=== PATIENT | female | born 1955 | race Caucasian/White ===

== ENCOUNTER 2018-10-05 19:10 | Outpatient (REF) | payer OTHER, SELFPAY ==
[2018-10-05 21:42] LABS: COMMENT (LAB VIEW ONLY) 31.39 mg/dL; Microalb ug/mg Crea 9.2 ug/mg Cr
== END 2018-10-05 19:30 ==
LOC: NCHCN 19:10
PROVIDERS: PCP Family Medicine; Visit Provider Family Medicine
DX: E10.65 Type 1 diabetes mellitus with hyperglycemia (principal)
CPT/HCPCS: 82043; 82570

== ENCOUNTER 2018-10-06 12:10 | Outpatient (REF) | payer OTHER, SELFPAY ==
[2018-10-06 21:32] LABS: TSH 2.54 uIU/mL (0.358-3.74)
== END 2018-10-06 12:30 ==
LOC: NCHCN 12:10
PROVIDERS: PCP Family Medicine; Visit Provider Family Medicine
DX: R53.83 Other fatigue (principal)
CPT/HCPCS: 84443

== ENCOUNTER 2019-01-23 02:45 | Outpatient (CLI) | payer OTHER, SELFPAY ==
--- NOTE | 2019-01-23 07:35 | DIABASSESS_ITS ---
DESCRIPTION/ASSESSMENT: Estelle Love presents for diabetes self management with consideration for a continuous glucose monitor Professional trial. Estelle has been struggling with frequent high and low blood sugars and doesn't feel she knows what to do now. A1c 8.9 down from 9.1. Estelle has 2 week blood sugar record of 53-245 fasting; 60-236 2 hours after breakfast; 53-317 before lunch; 49-307 before dinner; 143-297 bedtime. She is dosing 1 unit for 15 grams carbohydrate and doubled her insulin correction to 2 units for lowest correction. She takes 7-22 units mealtime insulin daily and 22u Levemir with experimenting cutting back on night levemir from 10 to 6 or 8 units. In addition, blood sugar reduction overnight can be 140mg/dl suggesting insulin at night may be too much. Estelle has attempted to wear 'some device' on her body in the past and it bothered her. She is reluctant to give this device a try. However, given her wide range in blood sugars and insulin dosing variations, after thorough description of CGM and the possibility of wearing one that she owns, she is willing to try again to wear this CGM. INTERVENTION: Reviewed procedure for insertion of CGM sensor and transmitter; set high and low alerts, reviewed entering calibration blood sugars; reviewed precautions. Discussed continued documentation of food, blood sugar and insulin dosing. The CGM is placed without difficulty and she is comfortable with the device on her body when leaving the visit. Discussed injection of insulin and she has insulin pens but is using a needle because pen needles were not given to her. Reviewed insulin pen injection and she is able to return demonstration. She is given 15 mae pen needles to get her started and she will contact her provider for a new prescription for pen needles. Further discussed options for basal insulin as she does not feel Levemir is effective for her. Reviewed new basal insulin, especially Tresiba. Discussed her current insulin management. Suggested she go back to 1 unit corrects 50mg/dl and watch pattern; Suggested decreasing basal insulin to 9 in AM and 8 in PM. PLAN She will wear the CGM and document food, blood sugar and insulin. decrease Levemir to 9 and 8 units discuss with provider Lantus or Tresiba (42 hour duration) basal insulin instead of Levemir call PCP for prescription for pen needles She will decrease insulin correction to 1 unit corrects 50mg/dl above 150mg/dl. We will get together in about 1 week to return the CGM and download her report. Glucose Monitoring 1 unit No DM group education series being offered at this time.
--- NOTE | 2019-05-02 12:47 | TELEFU_ITS ---
DESCRIPTION/ASSESSMENT: Estelle Love was offered a second try with [employer] CGM Professional because I was unable to download and print her first trial. She admits blood sugars were high this week and this is confirmed. She had only one blood sugar below 70 around noon after correction in the morning on her first day wearing it. INTERVENTION: Estelle plans to continue her application for obtaining her own CGM. Her results are sent to her provider. PLAN: She will call if she wishes for further intervention. Please do not bill for this service.
== END 2019-01-23 03:05 ==
PROVIDERS: PCP Family Medicine; Visit Provider Dietitian, Registered
DX: E66.9 Obesity, unspecified (principal); Z79.4 Long term (current) use of insulin; Z71.3 Dietary counseling and surveillance
CPT/HCPCS: 95250

== ENCOUNTER 2019-06-23 09:18 | Outpatient (CLI) | payer OTHER, SELFPAY ==
--- NOTE | 2019-06-23 09:00 | DI.US_ITS ---
EXAM: US PELVIS TRANSVAGINAL CLINICAL HISTORY: Pelvic pain R>L R10.2, Z86.018 PERSONAL HX OTHER BENIGN NEOPLASM. TECHNIQUE: Ultrasound performed using standard protocol. COMPARISON: No exams were available for comparison FINDINGS: THE UTERUS MEASURES 8.2 CM IN LENGTH, 5.1 CM IN HEIGHT AND 6.9 CM IN WIDTH AND IS RETROVERTED. ENDOME TRIAL STRIPE IS NOT SEEN. THREE UTERINE FIBROIDS ARE DEMONSTRATED IN THE UTERINE BODY, THE MOST SUPER IOR MEASURING 1.7 X 1.4 X 1.7 CM AND A SOMEWHAT MORE INFERIOR FIBROID MEASURES 4.2 X 3.7 X 4.6 CM AND A FIBROID IN THE ANTERIOR LOWER UTERINE BODY THERE IS 3.1 X 2.0 X 2.2 CM. THE RIGHT OVARY MEASURES 1 .7 X 1.5 X 1.1 CM. THE LEFT OVARY WAS NOT VISUALIZED. THERE IS AN APPARENT LEFT ADNEXAL MASS WHICH AP PEARS CYSTIC. There are low level internal echoes. A solid area is demonstrated. The mass measures 10 .8 x 11.0 x 14.6 cm. A small solid region measures 2.4 x 1.4 x 3.1 cm. . IMPRESSION: There is a 10.8 x 11.0 by 14.6 adnexal mass which is complex and may well represent a dermoid. Furthe r evaluation with MRI is suggested.
== END 2019-06-23 09:38 ==
PROVIDERS: PCP Family Medicine; Visit Provider Nurse Practitioner Women's Health
DX: R10.2 Pelvic and perineal pain (principal); D25.9 Leiomyoma of uterus, unspecified; R19.09 Other intra-abdominal and pelvic swelling, mass and lump; Z86.018 Personal history of other benign neoplasm
CPT/HCPCS: 76830; 76856

== ENCOUNTER 2019-06-23 11:42 | Outpatient (REF) | payer OTHER, SELFPAY ==
--- NOTE | 2019-06-23 08:50 | PAPFT_PTH ---
PATIENT: Estelle Love LOC: [facility] U#:[id number] AGE/SX: 63/F ROOM: RE06/23/[address]: Joanne Swan NP : 1955 BED: DIS: 06/23/2019 SPEC #: [id number] RECD: 06/23/19 12:50 STATUS: JESUS OLEARY #: [id number] JOSE ANTONIO: 06/23/19 08:[address]: Joanne Swan NP DEPT: [facility] Cytology RECD BY: Clarisse Quinones ENTERED: 06/23/19 12:51 SP TYPE: PAPFT OTHR DR: Marylou Sanches Tissues: 1 - CX/ENDOCX FOR PAP SMEARS Procedures: PAP THIN PREP/UVM Screening HPV DNA PROBE Comments: [id number]
== END 2019-06-23 12:02 ==
LOC: LBN 11:42
PROVIDERS: PCP Family Medicine; Visit Provider Nurse Practitioner Women's Health
DX: Z12.4 Encounter for screening for malignant neoplasm of cervix (principal); Z11.51 Encounter for screening for human papillomavirus (HPV)
CPT/HCPCS: 88142; 87624

== ENCOUNTER 2019-07-11 13:16 | Outpatient (REF) | payer OTHER, SELFPAY ==
[2019-07-11 20:56] LABS: Anion Gap 7.2 mmol/L (3-11); BUN 8 mg/dL (7-18); CO2 29.8 mmol/L (21.0-32.0); CREATININE 0.65 mg/dL (0.55-1.02); Calcium 9.2 mg/dL (8.5-10.1); Chloride 97 mmol/L (98-107); Glucose 269 mg/dL (70-100); Potassium 4.9 mmol/L (3.5-5.1); Sodium 134 mmol/L (136-145)
[2019-07-11 21:10] LABS: Hemoglobin A1C 8.8 % (4.5-6.2)
== END 2019-07-11 13:36 ==
LOC: NCHCN 13:16
PROVIDERS: PCP Family Medicine; Visit Provider Family Medicine
DX: E10.65 Type 1 diabetes mellitus with hyperglycemia (principal); E87.1 Hypo-osmolality and hyponatremia
CPT/HCPCS: 80048; 83036

== ENCOUNTER 2019-09-12 08:21 | Outpatient (REF) | payer OTHER, SELFPAY ==
[2019-09-12 20:24] LABS: Calculated LDL 108 mg/dL; Cholesterol 178 mg/dL (<200); HDL Cholesterol 61 mg/dL (40-60); Triglyceride 48 mg/dL (<150)
== END 2019-09-12 08:41 ==
LOC: NCHCN 08:21
PROVIDERS: PCP Family Medicine; Visit Provider Family Medicine
DX: I10 Essential (primary) hypertension (principal); E10.65 Type 1 diabetes mellitus with hyperglycemia; Z13.220 Encounter for screening for lipoid disorders
CPT/HCPCS: 80061

== ENCOUNTER 2019-12-06 01:24 | Outpatient (CLI) | payer OTHER, SELFPAY ==
--- NOTE | 2019-12-06 | DI.MAMMO_ITS ---
EXAM: MG MAMMO SCREENING CLINICAL HISTORY: SCREENING, Z12.31 TECHNIQUE: Bilateral full field digital CC and MLO mammographic images were obtained with 3D tomosyn thesis and utilizing computer aided detection (CAD). COMPARISON: Available for comparison. FINDINGS: Masses/Architectural Distortion: None seen. Microcalcifications: No suspicious pleomorphic-type are seen. Skin Thickening/Nipple Retraction: None. IMPRESSION: 1. No significant interval change with no specific features of malignancy noted. 2. Unless there is more urgent need, screening mammography is recommended, as per [place] [employer] guidelines. ACR BI-RAD Category- 1 Negative Breast Density - Category C - Heterogeneously dense The mammogram demonstrates the patient's breast tissue is dense. Dense breast tissue is very common a nd is not abnormal but dense breast tissue can make it harder to find cancer on a mammogram. Also, de nse breast tissue may increase their breast cancer risk. This information about the result of the [facility] mogram report was provided to the patient to raise their awareness. Use this report when you speak wi th the patient about their risks for breast cancer, which includes their family history. At that time , you may recommend for more screening tests (Ultrasound or MRI) as they might be useful based on the ir risk. A negative radiographic report should not delay biopsy if a dominant or clinically suspicious mass is present. Up to ten percent of cancers are not identified on mammography. A negative report may reinforce clinical impression. Adenosis and dense breasts may obscure an underlying neoplasm. False positive reports average 6 to 10%. Patient will receive a letter notifying them of these results.
== END 2019-12-06 01:44 ==
PROVIDERS: PCP Family Medicine; Visit Provider Family Medicine
DX: Z12.31 Encounter for screening mammogram for malignant neoplasm of breast (principal)
CPT/HCPCS: 77063; 77067

== ENCOUNTER 2020-04-02 11:59 | Outpatient (REF) | payer OTHER, SELFPAY ==
[2020-04-02 21:36] LABS: COMMENT (LAB VIEW ONLY) 38.67 mg/dL; Microalb ug/mg Crea 59.5 ug/mg Cr
== END 2020-04-02 12:19 ==
LOC: NCHCN 11:59
PROVIDERS: PCP Family Medicine; Visit Provider Family Medicine
DX: Z00.00 Encounter for general adult medical examination without abnormal findings (principal); E10.65 Type 1 diabetes mellitus with hyperglycemia
CPT/HCPCS: 82043; 82570

== ENCOUNTER 2020-08-07 02:09 | Outpatient (CLI) | payer OTHER, SELFPAY ==
--- NOTE | 2020-08-09 11:28 | W.NUTCONSULT ---
Date of service: 08/07/20 Time of Service: 10:00 Nutritional Consult ASSESSMENT: ASSESSMENT: Estelle presents with a referral for CGM placement of dexcom G6. She has dx DM1 and takes 21 units Lantus in the morning and Novolog bolus with 1 :15 insulin to CHO ratio. She is very competent with CHO counting. Estelle was able to give a food record for the previous day and although the food choices were healthy it revealed inadequate intake. She states that she eats meat ~2X/week, no fish. Estelle reports a recent A1c of 8.5(H) on 08/06/20. She reports episodes of nocturnal hypoglycemia with one occurring the previous night at 3:00am at 39ml/dl. She stated that she took six glucose tabs and woke up at 6:30 am with a BG of 110ml/dl. There were no recent labs available with documentation showing elevated glucose levels in the mid 200's. Our plan for this appointment is to review her hx and her current DM self management regimen, place her new CGM and educate her on the benefits for detecting nocturnal hypoglycemia, optimizing TIR and glycemic variability. INTERVENTION: Reviewed procedure for dexcom G6 sensor and transmitter placement. Observed Estelle successfully place the device. Adjusted settings for hyper and hypo glycemia alarms. Explained that she can now take preemptive action for either scenario utilizing the device. Reviewed difference in readings of blood vs. interstitial fluid for sense of ease and comfort. Discussed Somogyi effect, jennifer phenomenon and glycogen conversion as potential causes of hyper/hypoglycemia. Expalined the reports available with the device after data collection over 10 days. MONITOR/EVALUATION: Estelle will return for f/u appointment in 30 days to review CGM data and analyze trends in glucose levels.We will be reviewing her diet for appropriate p/o intake and appropriate macro/micro-nutrients. She will arrange for auto delivery of sensors for continued CGM use. Time Spent in Nutritional Counseling and Treatment: 4 units/1 Hour Face to Face
== END 2020-08-07 02:29 ==
PROVIDERS: PCP Family Medicine; Visit Provider Dietitian, Registered
DX: E11.9 Type 2 diabetes mellitus without complications (principal); Z79.4 Long term (current) use of insulin; Z71.3 Dietary counseling and surveillance
CPT/HCPCS: 97802

== ENCOUNTER 2021-04-21 16:45 | Outpatient (REF) | payer OTHER, SELFPAY ==
[2021-04-21 17:35] LABS: ALT 28 U/L (14-59); AST 23 U/L (15-37); Albumin 3.8 g/dL (3.4-5.0); Alkaline Phosphatase 66 U/L (46-116); Anion Gap 6.3 mmol/L (3-11); BUN 7 mg/dL (7-18); Bilirubin, Total 0.6 mg/dL (0.2-1.0); CO2 30.7 mmol/L (21.0-32.0); CREATININE 0.7 mg/dL (0.55-1.02); Calculated LDL 87 mg/dL (<100); Chloride 106 mmol/L (98-107); Cholesterol 162 mg/dL (<200); Glucose 107 mg/dL (74-106); HDL Cholesterol 66 mg/dL (40-60); Potassium 4.2 mmol/L (3.5-5.1); Sodium 143 mmol/L (136-145); Total Protein 6.8 g/dL (6.4-8.2); Triglyceride 47 mg/dL (<150)
== END 2021-04-21 16:46 | disposition home or self-care (01) ==
LOC: LBN 16:45
PROVIDERS: PCP Family Medicine; Visit Provider Nurse Practitioner Family
DX: E10.65 Type 1 diabetes mellitus with hyperglycemia (principal)
CPT/HCPCS: 80053; 80061

== ENCOUNTER 2021-07-11 16:35 | Outpatient (REF) | payer OTHER, SELFPAY ==
--- NOTE | 2021-07-11 13:20 | PAPFT_PTH ---
PATIENT: Estelle Love LOC: [facility]#:[id number] AGE/SX: 65/F ROOM: RE07/11/[address]: Marylou Sanches : 1955 BED: DIS: 07/11/2021 SPEC #: [id number] RECD: 07/14/21 13:05 STATUS: OLEGIvett REJuan Jose #: [id number] JOSE ANTONIO: 07/11/21 13:[address]: Sariah Corona DEPT: [facility] Cytology RECD BY: Clarisse Quinones ENTERED: 07/14/21 13:05 SP TYPE: PAPFT OTHR DR: Marylou Sanches Tissues: 1 - CX/ENDOCX FOR PAP SMEARS Procedures: PAP THIN PREP/UVM Screening HPV DNA PROBE Comments: [id number]
[2021-07-11 21:03] LABS: COMMENT (LAB VIEW ONLY) 19.75 mg/dL
== END 2021-07-11 16:36 | disposition home or self-care (01) ==
LOC: NCHCN 16:35
PROVIDERS: PCP Family Medicine; Visit Provider Family Medicine
DX: R80.9 Proteinuria, unspecified (principal); Z12.4 Encounter for screening for malignant neoplasm of cervix; Z11.51 Encounter for screening for human papillomavirus (HPV)
CPT/HCPCS: 88142; 82043; 82570; 87624

== ENCOUNTER 2021-09-02 10:56 | Outpatient (REF) | payer OTHER, SELFPAY ==
[2021-09-02 15:46] LABS: ALT 34 U/L (14-59); AST 21 U/L (15-37); Albumin 3.7 g/dL (3.4-5.0); Alkaline Phosphatase 63 U/L (46-116); Anion Gap 4.9 mmol/L (3-11); BUN 12 mg/dL (7-18); Bilirubin, Total 0.5 mg/dL (0.2-1.0); CO2 31.1 mmol/L (21.0-32.0); CREATININE 0.6 mg/dL (0.55-1.02); Calcium 8.7 mg/dL (8.5-10.1); Calculated LDL 107 mg/dL (<100); Chloride 101 mmol/L (98-107); Cholesterol 190 mg/dL (<200); Glucose 99 mg/dL (74-106); HDL Cholesterol 74 mg/dL (40-60); Potassium 4.3 mmol/L (3.5-5.1); Sodium 137 mmol/L (136-145); Total Protein 6.7 g/dL (6.4-8.2); Triglyceride 45 mg/dL (<150)
[2021-09-02 16:06] LABS: COMMENT (LAB VIEW ONLY) 40.26 mg/dL; Microalb ug/mg Crea 40.5 ug/mg Cr
== END 2021-09-02 10:57 | disposition home or self-care (01) ==
LOC: LBN 10:56
PROVIDERS: PCP Family Medicine; Visit Provider Nurse Practitioner Family
DX: E10.65 Type 1 diabetes mellitus with hyperglycemia (principal)
CPT/HCPCS: 80053; 80061; 82043; 82570

== ENCOUNTER 2021-12-23 12:03 | Outpatient (REF) | payer OTHER, SELFPAY ==
[2021-12-23 15:22] LABS: Hemoglobin A1C 8.1 % (<5.7)
[2021-12-23 15:30] LABS: Calculated LDL 94 mg/dL (<100); Cholesterol 174 mg/dL (<200); HDL Cholesterol 74 mg/dL (40-60); Triglyceride 33 mg/dL (<150)
[2021-12-23 16:56] LABS: COMMENT (LAB VIEW ONLY) 26.85 mg/dL; Microalb ug/mg Crea 45.1 ug/mg Cr
== END 2021-12-23 12:04 | disposition home or self-care (01) ==
LOC: LBO 12:03
PROVIDERS: PCP Family Medicine; Visit Provider Internal Medicine Endocrinology, Diabetes & Metabolism
DX: E11.9 Type 2 diabetes mellitus without complications (principal)
CPT/HCPCS: 80061; 82043; 82570; 83036

== ENCOUNTER 2022-03-30 15:11 | Outpatient (REF) | payer OTHER, SELFPAY ==
[2022-03-30 20:44] LABS: Anion Gap 4.9 mmol/L (3-11); BUN 14 mg/dL (7-18); CO2 30.1 mmol/L (21.0-32.0); CREATININE 0.5 mg/dL (0.55-1.02); Calcium 9.2 mg/dL (8.5-10.1); Chloride 96 mmol/L (98-107); Glucose 233 mg/dL (74-106); Potassium 4.4 mmol/L (3.5-5.1); Sodium 131 mmol/L (136-145)
== END 2022-03-30 15:12 | disposition home or self-care (01) ==
LOC: NCHCN 15:11
PROVIDERS: PCP Family Medicine; Visit Provider Family Medicine
DX: R03.0 Elevated blood-pressure reading, without diagnosis of hypertension (principal); Z86.39 Personal history of other endocrine, nutritional and metabolic disease
CPT/HCPCS: 80048

== ENCOUNTER 2022-04-22 17:52 | Outpatient (REF) | payer OTHER, SELFPAY ==
[2022-04-22 15:25] LABS: Anion Gap 8.4 mmol/L (3-11); CO2 27.6 mmol/L (21.0-32.0); Chloride 104 mmol/L (98-107); Potassium 4.3 mmol/L (3.5-5.1); Sodium 140 mmol/L (136-145)
== END 2022-04-22 17:53 | disposition home or self-care (01) ==
LOC: NCHCN 17:52
PROVIDERS: PCP Family Medicine; Visit Provider Family Medicine
DX: E87.1 Hypo-osmolality and hyponatremia (principal)
CPT/HCPCS: 80051

== ENCOUNTER 2022-11-04 02:04 | Outpatient (CLI) | payer MEDICARE, SELFPAY ==
--- NOTE | 2022-11-04 12:40 | DI.MAMMO_ITS ---
Exam(s) MAMMO SCREENING EXAM: MAMMO SCREENING CLINICAL HISTORY: SCREENING, Z12.39 TECHNIQUE: Mammograms were interpreted according to the usual protocol including computer analysis w [employer] CAD system, tomosynthesis and C-view imaging. COMPARISON: 2015 and 2019 FINDINGS: The breasts are composed of heterogeneously dense fibroglandular densities, Breast Density category C . No suspicious masses or suspicious microcalcifications are seen. No skin thickening or abnormal axillary lymph nodes are seen. There has been no significant change from prior exams. IMPRESSION: BI-RADS Category 1, Negative mammogram. Yearly screening mammography is recommended. Breast Density Category C, heterogeneously Dense. The mammogram demonstrates the patient's breast tissue is dense. Dense breast tissue is very common a nd is not abnormal but dense breast tissue can make it harder to find cancer on a mammogram. Also, de nse breast tissue may increase breast cancer risk. This information about the result of the mammogram report was provided to the patient to raise their awareness. Use this report when you speak with the patient about their risks for breast cancer, which includes their family history. At that time, you may recommend additional screening tests (Ultrasound or MRI) as they might be useful based on their r isk. A negative radiographic report should not delay biopsy if a dominant or clinically suspicious mass is present. Up to ten percent of cancers are not identified on mammography. A negative report may reinforce clinical impression. Adenosis and dense breasts may obscure an underlying neoplasm. False positive reports average 6 to 10%.
== END 2022-11-04 02:24 ==
PROVIDERS: PCP Family Medicine; Visit Provider Family Medicine
DX: Z12.31 Encounter for screening mammogram for malignant neoplasm of breast (principal); R92.8 Other abnormal and inconclusive findings on diagnostic imaging of breast
CPT/HCPCS: 77063; 77067

== ENCOUNTER 2022-12-29 14:11 | Outpatient (REF) | payer MEDICARE, SELFPAY ==
[2022-12-29 21:25] LABS: COMMENT (LAB VIEW ONLY) 17.38 mg/dL; Microalb ug/mg Crea 19.6 ug/mg Cr
[2022-12-29 21:26] LABS: Anion Gap 7.7 mmol/L (3-11); BUN 16 mg/dL (7-18); CO2 28.3 mmol/L (21.0-32.0); CREATININE 0.6 mg/dL (0.55-1.02); Calcium 9.4 mg/dL (8.5-10.1); Calculated LDL 116 mg/dL (<100); Chloride 102 mmol/L (98-107); Cholesterol 203 mg/dL (<200); Estimated GFR 99.55 (mL/min/1.73m2); Glucose 104 mg/dL (74-106); HDL Cholesterol 77 mg/dL (40-60); Potassium 4.3 mmol/L (3.5-5.1); Sodium 138 mmol/L (136-145); Triglyceride 51 mg/dL (<150)
== END 2022-12-29 14:12 | disposition home or self-care (01) ==
LOC: NCHCN 14:11
PROVIDERS: PCP Family Medicine; Visit Provider Family Medicine
DX: E10.65 Type 1 diabetes mellitus with hyperglycemia (principal); E87.1 Hypo-osmolality and hyponatremia; R80.9 Proteinuria, unspecified
CPT/HCPCS: 80048; 80061; 82043; 82570

== ENCOUNTER 2023-08-30 15:58 | Outpatient (REF) | payer MEDICARE, SELFPAY ==
[2023-09-01 18:53] LABS: C-Peptide <0.1 ng/mL (1.1 - 4.4)
== END 2023-08-30 15:59 | disposition home or self-care (01) ==
LOC: LBN 15:58
PROVIDERS: PCP Family Medicine; Visit Provider Nurse Practitioner Family
DX: E10.65 Type 1 diabetes mellitus with hyperglycemia (principal)
CPT/HCPCS: 84681

== ENCOUNTER 2023-10-13 10:37 | Outpatient (REF) | payer MEDICARE, SELFPAY ==
[2023-10-13 14:29] LABS: Glucose 106 mg/dL (74-106)
[2023-10-14 19:56] LABS: C-Peptide <0.1 ng/mL (1.1 - 4.4)
== END 2023-10-13 10:38 | disposition home or self-care (01) ==
LOC: NCHCN 10:37
PROVIDERS: PCP Family Medicine; Visit Provider Family Medicine
DX: E10.9 Type 1 diabetes mellitus without complications (principal)
CPT/HCPCS: 82947; 84681

== ENCOUNTER 2024-10-19 00:18 | Outpatient (CLI) | payer MEDICARE, SELFPAY ==
--- NOTE | 2024-10-19 | DI.MAMMO_ITS ---
Exam(s) MAMMO SCREENING EXAM: MAMMO SCREENING CLINICAL HISTORY: SCREENING,Z12.31 TECHNIQUE: Mammograms were interpreted according to the usual protocol including computer analysis w [employer] CAD system, tomosynthesis and C-view imaging. COMPARISON: 2015 through 2022 FINDINGS: The breasts are composed of heterogeneously dense fibroglandular densities, Breast Density category C . No suspicious masses or suspicious microcalcifications are seen. No skin thickening or abnormal axillary lymph nodes are seen. There has been no significant change from prior exams. IMPRESSION: BI-RADS Category 1, Negative mammogram. Yearly screening mammography is recommended. Breast Density Category C, heterogeneously Dense. The mammogram demonstrates the patient's breast tissue is dense. Dense breast tissue is very common a nd is not abnormal but dense breast tissue can make it harder to find cancer on a mammogram. Also, de nse breast tissue may increase breast cancer risk. This information about the result of the mammogram report was provided to the patient to raise their awareness. Use this report when you speak with the patient about their risks for breast cancer, which includes their family history. At that time, you may recommend additional screening tests (Ultrasound or MRI) as they might be useful based on their r isk. A negative radiographic report should not delay biopsy if a dominant or clinically suspicious mass is present. Up to ten percent of cancers are not identified on mammography. A negative report may reinforce clinical impression. Adenosis and dense breasts may obscure an underlying neoplasm. False positive reports average 6 to 10%.
--- NOTE | 2024-10-19 | DI.DEXA_ITS ---
Exam(s) XR DEXA BONE DENSITY W/WO MIGUELITO EXAM: XR DEXA BONE DENSITY W/WO MIGUELITO CLINICAL HISTORY: SCREENING FOR OSTEOPOROSIS IN POSTMENOPAUSAL WOMAN,Z78.0 TECHNIQUE: [employer] Horizon C densitometer analysis of left hip and lumbar spine. Lateral survey im age of the thoracic and lumbar spine. The forearm was not analyzed due to history of previous bilate ral wrist fractures. COMPARISON: No exams were available for comparison FINDINGS: Lateral view of the thoracic and lumbar spine shows no evidence of compression fractures. Bone mineral density measurements of the lumbar spine correspond to a total T-score of -1.7, in the osteopenic range. Bone mineral density measurements of the left hip correspond to a total T-score of -0.9 . The femora l neck T-score is 0.2, in the normal range.. IMPRESSION: Osteopenia of the spine. Normal bone mineral density of the hip.
== END 2024-10-19 00:38 ==
LOC: DI 00:18
PROVIDERS: PCP Family Medicine; Visit Provider Family Medicine
DX: Z78.0 Asymptomatic menopausal state (principal); Z12.31 Encounter for screening mammogram for malignant neoplasm of breast; Z13.820 Encounter for screening for osteoporosis; M85.89 Other specified disorders of bone density and structure, multiple sites
CPT/HCPCS: 77063; 77067; 77080

== ENCOUNTER 2025-03-21 07:44 | Outpatient (REF) | payer MEDICARE, SELFPAY ==
[2025-03-21 15:24] LABS: Calculated LDL 101 mg/dL (<100); Cholesterol 179 mg/dL (<200); HDL Cholesterol 67 mg/dL (>or=50); Triglyceride 57 mg/dL (<150)
== END 2025-03-21 07:45 | disposition home or self-care (01) ==
LOC: LBN 07:44
PROVIDERS: PCP Family Medicine; Visit Provider Nurse Practitioner Family
DX: E10.65 Type 1 diabetes mellitus with hyperglycemia (principal)
CPT/HCPCS: 80061